=== PATIENT | male | born 1960 | race Caucasian/White ===

== ENCOUNTER 2021-02-01 08:19 | Inpatient (IN) ==
--- OUTSIDE RECORDS SUMMARY | 2021-02-01 08:22 | External Medical Summary | Continuity of Care Document ---
:1960 Author Name Hernán Ha Address Unavailable Unavailable , Care Team Providers Name Role Phone NonMNPG M.DZully Unavailable [email or web address] Problems Active medical history not documented Allergies and Adverse Reactions Allergy history not documented Medications Medications not documented Procedures Procedures not documented Immunizations Immunizations not documented Plan of Treatment Planned Observations Planned Goals not documented Results No Known Results Results not documented
--- OUTSIDE RECORDS SUMMARY | 2021-02-01 08:22 | External Medical Summary | Continuity of Care Document ---
:1960 Author Name Hernán Ha Address Unavailable Unavailable , Care Team Providers Name Role Phone NonMNPG M.DZully Unavailable [email or web address] Active medical history not documented Allergies and Adverse Reactions Allergy history not documented Medications Medications not documented Procedures Procedures not documented Immunizations Immunizations not documented Plan of Treatment Planned Observations Planned Goals not documented Results No Known Results Results not documented
--- NOTE | 2021-02-01 09:11 | Emergency Department Note ---
History of Present Illness General Chief complaint: Back Injury/Pain Stated complaint: left arm numb, pain in back, weakness Time Seen by Provider: 02/01/21 08:34 History of Present Illness Maximum Pain Intensity: 2 60-year-old male who presents to the emergency department with complaint of intermittent left scapular pain, left upper extremity pain with tingling going down the arm to the fingers over the past 3 days. The patient reports that his symptoms have been intermittent now for a few years. It initially developed in June 2019 when he was fishing in [place]. The patient reports that he had extensive work-up by his PCP that did not show any obvious etiologies for his symptoms. The patient reports that the symptoms seem to be triggered with smoking cigars. He has not noticed any significant difference with exertion. The patient has not had any anterior chest pain, shortness of breath, neck pain, nausea, lightheadedness or headaches. Patient denies any significant health issues. He has rescheduled a physical exam for the near future. The patient currently rates his discomfort a 2 out of 10. When the patient does have the pain, he cannot exacerbate the pain with movement of the left shoulder or arm. He reports that the pain resolves with ibuprofen and Tylenol. He denies any personal or family history of other significant cardiopulmonary disease. Patie nt denies hypercholesterolemia or hypertension. He has not noticed any swelling in the legs, and denies any risk factors for blood clots. The patient reports that he spoke with a coworker, who reports that he had a heart attack with similar symptoms. Patient presents to the emergency department today requesting a cardiac work-up. Home Medications Medication Instructions Recorded Confirmed Type acetaminophen [Tylenol] 325 mg PO QID PRN 02/01/21 02/01/21 History ibuprofen [Advil] 600 mg PO Q6H PRN 02/01/21 02/01/21 History nicotine (polacrilex) [Nicorette] 2 mg BUCCAL Q4H PRN 02/01/21 02/01/21 History Allergies Allergy/AdvReac Type Severity Reaction Status Date / Time Penicillins Allergy Intermediate UNSURE Verified 02/01/21 09:10 Past Med/Surg History Medical History Tobacco use disorder Surgical History No pertinent past surgical history Family History Other Cancer Social History Smoking Status: Current every day smoker Tobacco Type: Cigars Cigarettes Per Day: 5-6, chews nicorete; Tobacco Cessation Education Requested by Patient: No Hx Alcohol Use: No Hx Substance Use: No Preferred Language: Amharic Armored Car Messenger Required: No Beliefs That Will Affect Care: None marital status: Current Living Situation: Spouse current occupational status: employed Other Information That Helps Us Care for You: No Feels Safe at Home: Yes Safety Concerns: Feels Safe At This Time Assistive Devices: Contacts Review of Systems 10 system review was performed and was negative except for pertinent positives and negatives as indicated in history of present illness Physical Exam Vital Signs Vital Signs - 24 hr 02/01/21 08:30 02/01/21 09:18 02/01/21 09:30 Temperature 36.9 C Temperature Source Temporal Artery Scan Pulse Rate 82 72 70 Pulse Rate from SpO2 Sensor 70 69 Respiratory Rate 18 16 22 Blood Pressure 130/85 133/83 119/76 Blood Pressure Mean 100 99 90 Pulse Oximetry 95 96 96 Oxygen Delivery Method Room Air Sepsis Recent Fever Within 48 Hours No Sepsis New/Unexplained Change in Mental Status N/A Sepsis Action Taken by Nursing No Action Required 02/01/21 09:34 02/01/21 10:00 02/01/21 10:30 Temperature Temperature Source Pulse Rate 85 67 76 Pulse Rate from SpO2 Sensor 85 69 77 Respiratory Rate 23 17 13 Blood Pressure 150/93 H 130/88 134/86 Blood Pressure Mean 112 102 102 Pulse Oximetry 92 95 95 Oxygen Delivery Method Sepsis Recent Fever Within 48 Hours Sepsis New/Unexplained Change in Mental Status Sepsis Action Taken by Nursing 02/01/21 10:49 02/01/21 11:00 Temperature Temperature Source Pulse Rate 70 72 Pulse Rate from SpO2 Sensor Respiratory Rate 14 14 Blood Pressure 131/80 138/95 Blood Pressure Mean 97 109 Pulse Oximetry Oxygen Delivery Method Sepsis Recent Fever Within 48 Hours Sepsis New/Unexplained Change in Mental Status Sepsis Action Taken by Nursing CONSTITUTIONAL: Healthy and well nourished. Alert and oriented X 3. Patient does not appear in any acute distress. HEENT: Normocephalic, atraumatic. No scleral icterus or conjunctival inje ction/pallor. NECK: Full active range of motion without discomfort. Negative lateral gaze test. LYMPHATICS: No cervical chain adenopathy. RESPIRATORY: Clear to auscultation bilaterally with no wheezing, crackles, rhonchi or stridor. Deep breathing does not cause any discomfort. CARDIOVASCULAR: Regular rate and rhythm with no murmurs, rubs or gallops. GASTROINTESTINAL: Bowel sounds present in all quadrants. Soft and nontender to palpation. MUSCULOSKELETAL: Full range of motion of all joints without discomfort. Patient has no tenderness to palpation of the intrascapular region, thoracic spine or paraspinous muscles. No scapular winging. Range of motion of the right shoulder does not cause discomfort. INTEGUMENTARY: No rash or other significant dermatologic conditions noted. HEMATOLOGIC: No ecchymosis or petechiae. PSYCHIATRIC: Positive affect. NEUROLOGIC: No focal neurologic deficits noted. Left deltoid, hand and fingers are sensory intact. Course Course Patient history and physical exam were performed. Nurses notes were reviewed. Vital signs were reviewed and was initially normal in triage. IV access was established, and labs were drawn. The patient refused any analgesics on initial exam, rating his pain a 2 out of 10. An ECG was performed, suggesting the possibility of Q waves in leads III and aVF, otherwise no ST elevations or other conduction abnormalities appreciated. The patient was placed on child monitor while in the emergency department. A portable chest x-ray was performed and was normal. Review of labs shows an elevated troponin of 0.974, otherwise remaining labs, including CBC, CMP, coagulation studies, D-dimer and lipase were normal. COVID-19 testing was ordered and was negative. Findings were discussed with the patient, as well as Dr. Gibbs, ED attending ph ysician. I initially discussed the case with Dr. Miguel, product development engineer wafer production lead worker, as we were unable to contact Bharath Mcwilliams product development engineer on- call. Dr. Miguel recommended discussing the case further with on-call cardiology art consultant, Dr. Issa. Findings were discussed with Dr. Issa, who recommended admission with IV heparin and serial cardiac isoenzymes and ECGs. If his troponin continues to rise, the patient will be taken to the cardiac cardiovascular surgeon. He also requested a bedside echocardiogram, which was ordered by me. I also placed the order for IV heparin, as well as aspirin 324 mg chew. The patient denied any further worsening of pain while in the emergency depart ment. The case was further discussed with the patient, who was in agreement with admission. I also discussed with the [facility]. Please see their dictation for further treatment and final disposition. Administered Medications Heparin Sodium/Dextrose (Heparin Sodium/Dextrose) 25,000 units in 500 mls @ 29 mls/hr IV .[id number] [facility]; Protocol Stop: 03/03/21 10:59 Last Admin: 02/01/21 11:21 Dose: 1,450 units/hr, 29 mls/hr Documented by: [id number] Cosigned by: [id number] Sodium Chloride (Nss 1000ml) 1,000 mls @ 50 mls/hr IV .Q20H [facility] Stop: 03/03/21 14:44 Last Admin: 02/01/21 15:32 Dose: 50 mls/hr Documented by: [id number] Discontinued Medications Aspirin (Aspirin 81 Mg Chew) 324 mg PO NOW STA Stop: 02/01/21 11:08 Last Admin: 02/01/21 11:21 Dose: 324 mg Documented by: [id number] Heparin Sodium (Porcine) (Heparin Sod (Porcine) 1000 Unit/Ml 10 Ml Vial) Confirm Administered Dose 10,000 units .ROUTE .STK-MED ONE Stop: 02/01/21 11:11 Last Admin: 02/01/21 11:21 Dose: 5,000 units Documented by: [id number] Cosigned by: [id number] Heparin Sodium/Dextrose (Heparin Iv Standard With Bolus) 1 ea IV NOW STA; Protocol Stop: 02/01/21 10:47 Last Admin: 02/01/21 11:30 Dose: Not Given Documented by: [id number] Metoprolol Tartrate (Metoprolol Tartrate 25 Mg Tab) 25 mg PO NOW ONE Stop: 02/01/21 14:42 Last Admin: 02/01/21 15:24 Dose: 25 mg Documented by: [id number] Critical Care Time Critical Care Time: Yes Total Critical Care Time: 35 I have personally spent proximately 35 minutes of critical care time in the direct management of this patient. This includes bedside care, interpretation of diagnostic studies, and testing, discussion with consultants, patient, and family members, and other required patient management activities. This 35 minutes is in excess of all separately billable procedures. The patient was administered IV heparin for non-STEMI. Medical Decision Making Medical Records Attestation: I reviewed the patient's medical records. Home Medications Current Medication List: was personally reviewed by me Laboratory Data Attestation: I reviewed the patient's lab results. Result diagrams: 02/01/21 09:20 02/01/21 09:20 Lab Results 02/01/21 02/01/21 02/01/21 Range/Units 09:20 09:20 09:20 WBC 9.20 (4.8-10.8) K/uL RBC 5.27 (4.7-6.1) M/uL Hgb 16.8 (14.0-18.0) g/dL Hct 47.7 (42-52) % MCV 90.5 (80-100) fL MCH 31.9 (25-34) pg MCHC 35.2 (32-36) g/dL RDW Std Deviation 41.8 (36.4-46.3) fL RDW Coeff of Archana 12.5 (11.5-14.5) % Plt Count 257 (130-400) K/uL MPV 9.2 (7.4-10.4) fL Immature Gran % (Auto) 0.7 % Neut % (Auto) 69.5 % Lymph % (Auto) 19.0 % [place] % (Auto) 9.3 % Eos % (Auto) 1.3 % Baso % (Auto) 0.2 % Neut # (Auto) 6.39 (1.4-6.5) K/uL Lymph # (Auto) 1.75 (1.2-3.4) K/uL [place] # (Auto) 0.86 H (0.11-0.59) K/uL Eos # (Auto) 0.12 (0-0.5) K/uL Baso # (Auto) 0.02 (0-0.2) K/uL Immature Gran # (Auto) 0.06 H (0.00-0.02) K/uL PT (9.0-12.0) Seconds INR (0.9-1.1) D-Dimer 250 (0-500) ug/L FEU Sodium 137 (136-145) mmol/L Potassium 4.2 (3.5-5.1) mmol/L Chloride 105 (98-107) mmol/L Carbon Dioxide 27 (21-32) mmol/L Anion Gap 5.0 (3-11) BUN 21 H (7-18) mg/dl Creatinine 1.11 (0.6-1.4) mg/dl Est Cr Clr Drug Dosing 81.8 ml/min Est GFR ( Amer) 83.2 Est GFR (Non-Af Amer) 71.8 BUN/Creatinine Ratio 19.1 (10-20) Glucose 111 H (70-99) mg/dl Calcium 9.9 (8.5-10.1) mg/dl Total Bilirubin 0.5 (0.2-1) mg/dl AST 22 (15-37) U/L ALT 26 (12-78) U/L Alkaline Phosphatase 70 (45-117) U/L Troponin I 0.974 H* (0-0.045) ng/ml Total Protein 7.9 (6.4-8.2) gm/dl Albumin 4.1 (3.4-5.0) gm/dl Globulin 3.8 (2.5-4.0) gm/dl Albumin/Globulin Ratio 1.1 (0.9-2) Lipase 81 (73-393) U/L COVID-19 Eval Order SARS-CoV-2, RNA, NAAT (NEGATIVE) 02/01/21 02/01/21 02/01/21 Range/Units 09:20 10:40 10:40 WBC (4.8-10.8) K/uL RBC (4.7-6.1) M/uL Hgb (14.0-18.0) g/dL Hct (42-52) % MCV (80-100) fL MCH (25-34) pg MCHC (32-36) g/dL RDW Std Deviation (36.4-46.3) fL RDW Coeff of Archana (11.5-14.5) % Plt Count (130-400) K/uL MPV (7.4-10.4) fL Immature Gran % (Auto) % Neut % (Auto) % Lymph % (Auto) % [place] % (Auto) % Eos % (Auto) % Baso % (Auto) % Neut # (Auto) (1.4-6.5) K/uL Lymph # (Auto) (1.2-3.4) K/uL [place] # (Auto) (0.11-0.59) K/uL Eos # (Auto) (0-0.5) K/uL Baso # (Auto) (0-0.2) K/uL Immature Gran # (Auto) (0.00-0.02) K/uL PT 9.6 (9.0-12.0) Seconds INR 0.9 (0.9-1.1) D-Dimer (0-500) ug/L FEU Sodium (136-145) mmol/L Potassium (3.5-5.1) mmol/L Chloride (98-107) mmol/L Carbon Dioxide (21-32) mmol/L Anion Gap (3-11) BUN (7-18) mg/dl Creatinine (0.6-1.4) mg/dl Est Cr Clr Drug Dosing ml/min Est GFR ( Amer) Est GFR (Non-Af Amer) BUN/Creatinine Ratio (10-20) Glucose (70-99) mg/dl Calcium (8.5-10.1) mg/dl Total Bilirubin (0.2-1) mg/dl AST (15-37) U/L ALT (12-78) U/L Alkaline Phosphatase (45-117) U/L Troponin I (0-0.045) ng/ml Total Protein (6.4-8.2) gm/dl Albumin (3.4-5.0) gm/dl Globulin (2.5-4.0) gm/dl Albumin/Globulin Ratio (0.9-2) Lipase (73-393) U/L COVID-19 Eval Order Covid19 [facility]Now [facility] SARS-CoV-2, RNA, NAAT NEGATIVE (NEGATIVE) Imaging Data Attestation: I personally reviewed and interpreted this imaging study as follows: My Impression: My interpretation of a portable chest x-ray does not show any consolidations, pneumothorax or cardiac prominence. Radiologist report was also reviewed. Radiologist's Impression: XR chest 1V portable CLINICAL HISTORY: Atypical chest pain COMPARISON STUDY: No previous studies for comparison. FINDINGS: The cardiac and mediastinal contours are normal. There is no evidence of focal pulmonary consolidation. There is no evidence of failure. No pleural effusions are visualized.[ IMPRESSION: No active disease in the chest. ECG Data Attestation: I personally reviewed and interpreted this ECG as follows: Indication: + chest pain Rate (beats per minute): 77 Rhythm: + normal sinus ECG Intervals/blocks: + Normal [place] and + Normal QT-c ECG ST segments: + Normal ST segments ECG Findings: + Q waves (III and aVF) Comparison ECG Date: no prior available Prescription Drug Monitoring [place] Drug Monitoring Program reviewed and no issues identified Blood Pressure Blood Pressure Findings: Normal blood pressure MDM Narrative Cardiac monitoring: An order was placed for continuous cardiac monitoring. The monitor shows a rate of 77 bpm with a normal sinus rhythm. environmental monitoring specialist history was reviewed throughout the evaluation, and no dysrhythmias were noted. Patient presents to the emergency department with complaint of an atypical presentation with left scapula pain and left upper extremity discomfort/numbness. The patient denied any anterior chest pain with his current symptoms. His pain initially developed less than 2 years ago. The p atient does have an elevated troponin today that is consistent with non-STEMI. He does have some Q waves in inferior leads, likely from initial cardiac injury 2 years ago. Impression & Plan NSTEMI (non-ST elevated myocardial infarction) Discharge Plan Visit Data Chief Complaint: Back Injury/Pain Stated Complaint: left arm numb, pain in back, weakness ED Provider: Fabian Gibbs ED Midlevel Provider: Ramón Saez Discharge Problem: NSTEMI (non-ST elevated myocardial infarction) Patient Disposition: Admitted As Inpatient Discharge Instructions Interventions: ED Discharge Assessment Last Done: 02/01/21 12:25
[2021-02-01 09:32] LABS: Basophils # (auto) 0.02 K/uL (0-0.2); Basophils % (auto) 0.2 %; Eosinophils # (auto) 0.12 K/uL (0-0.5); Eosinophils % (auto) 1.3 %; Hematocrit (blood only) 47.7 % (42-52); Hemoglobin 16.8 g/dL (14.0-18.0); Immature Granulocytes # (auto) 0.06 K/uL (0.00-0.02); Immature Granulocytes % (auto) 0.7 %; Lymphocytes # (auto) 1.75 K/uL (1.2-3.4); Mean Corpuscular Hemoglobin 31.9 pg (25-34); Mean Corpuscular Hgb Conc 35.2 g/dL (32-36); Mean Corpuscular Volume 90.5 fL (80-100); Mean Platelet Volume 9.2 fL (7.4-10.4); Monocytes # (auto) 0.86 K/uL (0.11-0.59); Monocytes % (auto) 9.3 %; Neutrophils # (auto) 6.39 K/uL (1.4-6.5); Neutrophils % (auto) 69.5 %; Platelet Count 257 K/uL (130-400); RDW Coefficient of Variation 12.5 % (11.5-14.5); RDW Standard Deviation 41.8 fL (36.4-46.3); Red Blood Count 5.27 M/uL (4.7-6.1)
--- NOTE | 2021-02-01 09:35 | XRay Report ---
XR chest 1V portable CLINICAL HISTORY: Atypical chest pain COMPARISON STUDY: No previous studies for comparison. FINDINGS: The cardiac and mediastinal contours are normal. There is no evidence of focal pulmonary co nsolidation. There is no evidence of failure. No pleural effusions are visualized.[ IMPRESSION: No active disease in the chest. ACT 112: Negative or not required by law. Electronically signed by: Piotr Andres M.D. 02/01/2021 9:34 AM
[2021-02-01 09:42] LABS: D Dimer 250 ug/L FEU (0-500)
[2021-02-01 09:48] LABS: Albumin Level 4.1 gm/dl (3.4-5.0); BUN Creatinine Ratio 19.1 (10-20); Calcium 9.9 mg/dl (8.5-10.1); Creatinine Clr Calc Pharmacy 81.8 ml/min; Est GFR (African American) 83.2; Est GFR (Non-African American) 71.8; Potassium 4.2 mmol/L (3.5-5.1)
[2021-02-01 09:54] LABS: Albumin Globulin Ratio 1.1 (0.9-2); Bilirubin,Total 0.5 mg/dl (0.2-1); Globulin 3.8 gm/dl (2.5-4.0); Total Protein 7.9 gm/dl (6.4-8.2); Troponin I 0.974 ng/ml (0-0.045)
[2021-02-01] MEDS ORDERED: Heparin IV Adult Wt-Based Standard WITH Bolus Protocol IV STA (10:46)
--- NOTE | 2021-02-01 10:56 | History & Physical Report ---
Date of Service February 01, 2021 Assessment & Plan (1) NSTEMI (non-ST elevated myocardial infarction): This is a 60yo M with a PMH of tobacco use who presents with intermittent shoulder and left arm pain over the past few days and found to have NSTEMI. L subscapular pain with radiation to left arm, intermittent, made worse after smoking cigar Denies personal or family history of CAD. No PMH of diabetes, HTN or HLD Initial troponin elevated 0.974 D-dimer within normal limits ECG without acute ischemic changes CXR without acute cardiopulmonary abnormality ED provider discussed with Dr. Issa in blood bank laboratory technician, who recommended initiating IV heparin for NSTEMI Echo with normal systolic function, no wall motion abnormality or significant valvular pathology Trend troponin, monitor on telemetry, routine cardiology consult, check a1c and fasting lipid panel in AM, repeat ECG in AM (2) Tobacco use disorder: Cessation recommended DVT Ppx: IV heparin Code status: FULL PCP: Yara Dispo: Admitted to PCU. Plan to return home once medically stable Patient seen in collaboration with Dr. Turner. Please see addendum. History of Present Illness Chief Complaint: shoulder pain Primary Care Provider: Philip Livingston MD This is a 60yo M with a PMH of tobacco use who presents with intermittent shoulder and left arm pain over the past few days. Has history of pain similar to this that he describes as an ache underneath the back of his left shoulder with radiating pain down left arm into fingertips with associated feelings of weakness. Occurred first in June 2019 when he was on a fishing trip in [place]. Underwent echocardiogram at that time which was normal. Was encouraged to stop smoking cigars by PCP. Was successful with cessation for a bit but is smoking again and pain resolved, but is now back to 6 small cigars daily. Over the past 3 days, endorses intermittent episodes of shoulder discomfort that occur after patient smokes a cigar. Pain improves with Tylenol, Advil and rest. Episodes usually last no longer than an hour. Denies any associated diaphoresis, chest pain, shortness of breath, nausea or vomiting. No known family history or personal history of heart disease. Has been working out recently without eliciting shoulder pain. Denies any personal history of diabetes, hypertension. Told he had borderline hyperlipidemia in the past but has been trying to control with diet and exercise. Denies any fever, chills, lightheadedness, headache, dysuria, diarrhea or constipation. In ED, patient no longer experiencing pain in shoulder. Is resting comfortably. Vital signs stable. D-dimer within normal limits. Initial troponin elevated 0.974. Chest x-ray without any active disease in chest. EKG without acute ECG changes. ED provider discussed with Dr. Issa in blood bank laboratory technician, who recommended initiating IV heparin for NSTEMI and getting echo. Allergies Allergy/AdvReac Type Severity Reaction Status Date / Time Penicillins Allergy Intermediate UNSURE Verified 02/01/21 09:10 Home Medications Medication Instructions Recorded Confirmed Type acetaminophen [Tylenol] 325 mg PO QID PRN 02/01/21 02/01/21 History ibuprofen [Advil] 600 mg PO Q6H PRN 02/01/21 02/01/21 History nicotine (polacrilex) [Nicorette] 2 mg BUCCAL Q4H PRN 02/01/21 02/01/21 History Past Med/Surg History Medical History (Updated 02/01/21 @ 13:47 by Darcy Esquivel PA-C) Tobacco use disorder Surgical History No pertinent past surgical history Family History (Updated 02/01/21 @ 12:50 by Darcy Esquivel PA-C) Other Cancer Social History (Updated 02/01/21 @ 12:51 by Darcy Esquivel PA-C) Smoking Status: Current every day smoker Tobacco Type: Cigars Cigarettes Per Day: 5-6, chews nicorete; Tobacco Cessation Education Requested by Patient: No Hx Alcohol Use: No Hx Substance Use: No Preferred Language: Emirati [employer] Billing Analyst Required: No Beliefs That Will Affect Care: None marital status: Current Living Situation: Spouse current occupational status: employed Other Information That Helps Us Care for You: No Feels Safe at Home: Yes Safety Concerns: Feels Safe At This Time Assistive Devices: Contacts Review of Systems Review of Systems: At least ten systems reviewed and negative except as noted in the HPI. Physical Exam Physical Exam: General Appearance: WD/WN, vitals as above, NAD, sitting up in bed, pleasant, conversing easily Head: normocephalic, atraumatic Eyes: normal inspection, PERRL, conjunctivae normal, anicteric sclerae ENT: external ear and nose normal, oropharynx normal Neck: normal visual inspection, trachea midline, no thyromegaly Respiratory: normal respiratory effort, lungs clear to auscultation, no wheeze, rales, rhonchi. No accessory muscle use Cardiovascular: regular rate, rhythm, no murmur, normal peripheral pulses, no BLE edema. Vessels: no JVD Chest: normal inspection of chest Abdomen/GI: normal bowel sounds, soft, nontender, no hepatosplenomegaly Extremities/Musculoskeletal: no cyanosis or clubbing, extremities motor strengt h 5/5. No shoulder or L arm pain to palpation Neurologic: PERRL, EOMI, accommodation nl, no face palsy, no dysarthria, CN's II-XI intact bilaterally and moves all extremities Psychiatric: A+Ox3, euthymic affect Skin: no rashes, normal color, warm/dry Results & Data Results & Data ([facility] [place]) Vital Signs (Past 12 Hours) Vital Signs Temp Pulse Resp BP Pulse Ox 02/01/21 10:30 76 13 134/86 95 02/01/21 10:00 67 17 130/88 95 02/01/21 09:34 85 23 150/93 H 92 02/01/21 09:30 70 22 119/76 96 02/01/21 09:18 72 16 133/83 96 02/01/21 08:30 36.9 C 82 18 130/85 95 Laboratory Results Short CBC 02/01/21 Range/Units 09:20 WBC 9.20 (4.8-10.8) K/uL Hgb 16.8 (14.0-18.0) g/dL Hct 47.7 (42-52) % Plt Count 257 (130-400) K/uL BMP 02/01/21 09:20 Sodium 137 Potassium 4.2 Chloride 105 Carbon Dioxide 27 BUN 21 H Creatinine 1.11 Glucose 111 H Calcium 9.9 Cardiac Enzymes 02/01/21 Range/Units 09:20 Troponin I 0.974 H* (0-0.045) ng/ml Liver Function 02/01/21 Range/Units 09:20 Total Bilirubin 0.5 (0.2-1) mg/dl AST 22 (15-37) U/L ALT 26 (12-78) U/L Alkaline Phosphatase 70 (45-117) U/L Albumin 4.1 (3.4-5.0) gm/dl Diagnostic Findings CXR: IMPRESSION: No active disease in the chest. Supervising Physician Co-Signing Physician Notes Patient is a 60-year-old male with history of tobacco use and no other significant medical history presents with history of ongoing intermittent left shoulder pain radiating down to her fingers. Denies any aggravating or relieving factors. Denies any history of hypertension, diabetes, family history of heart disease, alcohol use, dyslipidemia. Also denies any history of chest pain, dyspnea, dizziness, diaphoresis, nausea, vomiting. His troponin was elevated at 0.9 while in ED. EKG showed T wave inversions in inferior leads. Echocardiogram showed normal wall motion and no significant valvular heart disease. He was started on IV heparin while in ED. On exam patient is moderately built and nourished, no apparent distress, normocephalic atraumatic, lungs are clear to auscultation, normal breath sounds, S1-S2, no murmur, no pedal edema, abdomen soft, nontender, normal bowel sounds, alert, awake, oriented, grossly nonfocal neurological deficits. Patient is admitted for management of Possible NSTEMI. Agree with continuing IV heparin, aspirin. Also was started on metoprolol by cardiology. Appreciate cardiology input. Will obtain lipid panel, HbA1c and trend cardiac enzymes, repeat EKG in the morning. We will keep him n.p.o. after midnight for possible cardiac cath in the morning. Counseled to quit smoking. Cardiology consulted. I personally reviewed the record. Patient is interviewed and examined at bedside. Patient's care is coordinated with Darcy Esquivel PA-C. Please refer to the documentation above for details of patient's presentation and for discussion of other issues.
[2021-02-01] MEDS ORDERED: HEPARIN SODIUM/DEXTROSE 25,000 UNITS/500 ML BAG IV SCH (11:00)
[2021-02-01] MEDS ORDERED: ASPIRIN 81 MG CHEW PO STA (11:07)
[2021-02-01] MEDS ORDERED: HEPARIN SOD (PORCINE) 1000 UNIT/ML ONE (11:10)
[2021-02-01 11:30] LABS: INR 0.9 (0.9-1.1); Prothrombin Time 9.6 Seconds (9.0-12.0)
--- NOTE | 2021-02-01 12:40 | XCELERA ---
[id number]
[2021-02-01] MEDS ORDERED: METOPROLOL TARTRATE 25 MG TAB PO ONE (14:41)
--- NOTE | 2021-02-01 15:21 | Cardiology Consultation ---
Date of Consultation February 01, 2021 Assessment & Plan (1) NSTEMI (non-ST elevated myocardial infarction): Patient is a 60-year-old male history of borderline hypertension, mild dyslipidemia, chronic tobacco use who presents with concerning constellation of pain described as left shoulder and scapular discomfort radiating to his arm intermittently. No acute injury pattern by EKG although troponin on initial assessment elevated consistent with non-ST segment elevation myocardial infarction until proven otherwise Patient currently without symptoms or complaints He has received aspirin and IV heparin We will initiate beta-marian, statin Discussed findings in detail with the patient he notes concerns regarding symptoms dating back to initial event approximately 2 years ago. In light of findings history and elevated troponin will refer for diagnostic cardiac catheterization as definitive study. Procedure and risks explained in detail to the patient tentatively scheduled for first case tomorrow morning (2) Tobacco use disorder: History of Present Illness Reason for Consultation: Left shoulder and back pain, elevated troponin Requesting Physician: Dr. Turner Attending Physician: Miguel Turner MD History of Present Illness Patient is a 60-year-old male without prior history of cardiac disease who presents this admission noting 3-day history of intermittent left shoulder and scapular pain with radiation to left arm. Symptoms exacerbated by tobacco use. Notes no sustained episodes will episode today at rest concerning. He presented emergency room where initial EKGs did not reflect acute injury pattern though troponin is elevated. He is currently comfortable without complaint. Notes similar episode of complaints approximately 2 years ago while fishing in [place] [employer]. Denies history rheumatic fever scarlet fever heart murmur. Notes no history of TIA or stroke. Notes no history of renal hepatic disease. Has had borderline hypertension in the past. Smokes approximately 7 small cigars per day. Does note an increased amount of stress recently home and job No recent fevers chills or unexplained infections. No bleeding difficulties. No melena medication dysuria hematuria. Appetite and weight have been stable. No sleep disruption. Allergies Allergy/AdvReac Type Severity Reaction Status Date / Time Penicillins Allergy Intermediate UNSURE Verified 02/01/21 09:10 Home Medications Medication Instructions Recorded Confirmed Type acetaminophen [Tylenol] 325 mg PO QID PRN 02/01/21 02/01/21 History ibuprofen [Advil] 600 mg PO Q6H PRN 02/01/21 02/01/21 History nicotine (polacrilex) [Nicorette] 2 mg BUCCAL Q4H PRN 02/01/21 02/01/21 History Patient History Medical History Tobacco use disorder Surgical History No pertinent past surgical history Family History Other Cancer Social History Smoking Status: Current every day smoker Tobacco Type: Cigars Cigarettes Per Day: 5-6, chews nicorete; Tobacco Cessation Education Requested by Patient: No Hx Alcohol Use: No Hx Substance Use: No Preferred Language: Irish 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 Required: No Beliefs That Will Affect Care: None marital status: Current Living Situation: Spouse current occupational status: employed Other Information That Helps Us Care for You: No Feels Safe at Home: Yes Safety Concerns: Feels Safe At This Time Assistive Devices: Contacts Review of Systems Review of Systems: All systems reviewed & are unremarkable except as noted in HPI & below Physical Exam Constitutional: WD/WN, vitals as above Eyes: PERRL, conjunctivae normal, anicteric sclerae Mild proptosis ENMT: external ear and nose normal, oropharynx normal Neck: trachea midline, no thyromegaly Respiratory: normal respiratory effort, lungs clear to auscultation Cardiovascular: Rate/Rhythm: regular rate and regular rhythm Heart Sounds: normal S1 and normal S2; no gallop and no murmur Palpation: normal PMI Vessels: normal carotid upstroke and radial pulses present; no JVD and no carotid bruit Extremities: no edema Gastrointestinal (Abdomen): normal bowel sounds, soft, nontender, no hepatosplenomegaly Musculoskeletal: no cyanosis or clubbing, extremities motor strength 5/5 Skin: no rashes, warm and dry Neurologic: PERRL, EOMI, accommodation nl, no face palsy, no dysarthria Psychiatric: A+Ox3, euthymic affect Results & Data ([facility]) Vital Signs (Past 12 Hours) Vital Signs Temp Pulse Resp BP BP Pulse Ox 02/01/21 12:44 36.6 C 18 145/78 H 98 02/01/21 12:00 68 16 138/90 02/01/21 11:30 68 19 145/98 H 02/01/21 11:00 72 14 138/95 02/01/21 10:49 70 14 131/80 02/01/21 10:30 76 13 134/86 95 02/01/21 10:00 67 17 130/88 95 02/01/21 09:34 85 23 150/93 H 92 02/01/21 09:30 70 22 119/76 96 02/01/21 09:18 72 16 133/83 96 02/01/21 08:30 36.9 C 82 18 130/85 95 Laboratory Results Laboratory Results - last 24 hr 02/01/21 02/01/21 02/01/21 09:20 09:20 09:20 WBC 9.20 RBC 5.27 Hgb 16.8 Hct 47.7 MCV 90.5 MCH 31.9 MCHC 35.2 RDW Std Deviation 41.8 RDW Coeff of Archana 12.5 Plt Count 257 MPV 9.2 Immature Gran % (Auto) 0.7 Neut % (Auto) 69.5 Lymph % (Auto) 19.0 [place] % (Auto) 9.3 Eos % (Auto) 1.3 Baso % (Auto) 0.2 Neut # (Auto) 6.39 Lymph # (Auto) 1.75 [place] # (Auto) 0.86 H Eos # (Auto) 0.12 Baso # (Auto) 0.02 Immature Gran # (Auto) 0.06 H PT INR D-Dimer 250 Sodium 137 Potassium 4.2 Chloride 105 Carbon Dioxide 27 Anion Gap 5.0 BUN 21 H Creatinine 1.11 Est Cr Clr Drug Dosing 81.8 Est GFR ( Amer) 83.2 Est GFR (Non-Af Amer) 71.8 BUN/Creatinine Ratio 19.1 Glucose 111 H Calcium 9.9 Total Bilirubin 0.5 AST 22 ALT 26 Alkaline Phosphatase 70 Troponin I 0.974 H* Total Protein 7.9 Albumin 4.1 Globulin 3.8 Albumin/Globulin Ratio 1.1 Lipase 81 COVID-19 Eval Order SARS-CoV-2, RNA, NAAT 02/01/21 02/01/21 02/01/21 09:20 10:40 10:40 WBC RBC Hgb Hct MCV MCH MCHC RDW Std Deviation RDW Coeff of Archana Plt Count MPV Immature Gran % (Auto) Neut % (Auto) Lymph % (Auto) [place] % (Auto) Eos % (Auto) Baso % (Auto) Neut # (Auto) Lymph # (Auto) [place] # (Auto) Eos # (Auto) Baso # (Auto) Immature Gran # (Auto) PT 9.6 INR 0.9 D-Dimer Sodium Potassium Chloride Carbon Dioxide Anion Gap BUN Creatinine Est Cr Clr Drug Dosing Est GFR ( Amer) Est GFR (Non-Af Amer) BUN/Creatinine Ratio Glucose Calcium Total Bilirubin AST ALT Alkaline Phosphatase Troponin I Total Protein Albumin Globulin Albumin/Globulin Ratio Lipase COVID-19 [facility] SARS-CoV-2, RNA, NAAT NEGATIVE Diagnostic Findings Chest x-ray no active disease Echocardiogram without valvular disease and preserved LV systolic function is present
[2021-02-01] MEDS: SODIUM CHLORIDE 0.9% 1000ML 1,000 ML IV SCH (15:32)
--- NOTE | 2021-02-01 16:40 | Electrocardiogram Report ---
Test Reason : Blood Pressure : / mmHG Vent. Rate : 077 BPM Atrial Rate : 077 BPM P-R Int : 196 ms QRS Dur : 080 ms QT Int : 370 ms P-R-T Axes : 055 -24 012 degrees QTc Int : 418 ms Normal sinus rhythm Inferior infarct , age undetermined Abnormal ECG No previous ECGs available Confirmed by Romario Miguel ([id number]) on 02/01/2021 4:39:37 PM Referred By: REFERRED SELF Confirmed By:Romario Miguel
[2021-02-01 17:37] LABS: Partial Thromboplastin Ratio 2.4
[2021-02-01] MEDS: METOPROLOL TARTRATE 25 MG TAB PO SCH (19:52)
[2021-02-01] MEDS ORDERED: NITROGLYCERIN SL 0.4 MG/TAB TAB ONE ×2 (22:27→22:28)
[2021-02-01] MEDS ORDERED: MoRPHine SULFATE 4 MG/ML 1 ML CARP\\VIAL IV PRN (22:29)
[2021-02-01] MEDS ORDERED: NITROGLYCERIN SL 0.4 MG/TAB TAB SL STA (22:29)
[2021-02-01] MEDS ORDERED: NITROGLYCERIN SL 0.4 MG/TAB TAB SL PRN (22:29)
[2021-02-01] MEDS ORDERED: traMADol HCL 50 MG TABLET PO PRN (22:29)
--- NOTE | 2021-02-01 22:52 | Communication Note ---
Date of Service: February 01, 2021 Notified by RN of abnormal EKG results around 10:30 PM. 5 minutes earlier as per RN account, patient complained of worsening left upper back discomfort going to the arm. Patient denies chest pain. EKG showed acute WA as per RN. Discomfort relieved by nitroglycerin. EKG as per my interpretation :Rate 65, NSR, normal axis, ST elevation inferior leads, ST depression lateral leads AP STEMI Patient admitted in AM for NSTEMI. Heart alert called after discussed case with Dr. Issa (machine etcher audiovisual production specialist.)
[2021-02-01] MEDS ORDERED: HEPARIN (PORCINE) 1000 UNIT/ML 10 ML (CATH LAB USE ONLY) ONE (23:15)
[2021-02-01] MEDS ORDERED: niCARdipine HCL INJ 2.5 MG/ML 10 ML AMP ONE (23:15)
[2021-02-01] MEDS ORDERED: NITROGLYCERIN/D5W 100MCG/ML 20ML SYR ONE (23:16)
[2021-02-01] MEDS ORDERED: fentaNYL citrate 100 MCG/2 ML VIAL ONE (23:16)
[2021-02-01] MEDS ORDERED: MIDAZOLAM HCL 1 MG/ML 2ML VIAL ONE (23:16)
[2021-02-02] MEDS ORDERED: ATROPINE SULFATE 0.1 MG/ML 10ML SYR IV ONE (00:08)
[2021-02-02] MEDS ORDERED: fentaNYL citrate 100 MCG/2 ML VIAL ONE (00:13)
[2021-02-02] MEDS ORDERED: MIDAZOLAM HCL 1 MG/ML 2ML VIAL ONE (00:14)
[2021-02-02] MEDS ORDERED: EPTIFIBATIDE 2 MG/ML 10 ML VIAL (CATH LAB USE ONLY) IV ONE (00:29)
[2021-02-02] MEDS ORDERED: EPTIFIBATIDE 0.75 MG/ML 75MG VIAL (CATH LAB USE ONLY) ONE (00:31)
[2021-02-02] MEDS ORDERED: TICAGRELOR 90 MG TAB PO ONE (01:07)
--- NOTE | 2021-02-02 01:23 | Pre Anesthesia Assessment ---
Date of Service February 02, 2021 Pre Sedation Assessment Vital Signs Temp Pulse Pulse Resp BP BP Pulse Ox 02/01/21 22:54 36.7 C 60 20 127/76 96 02/01/21 22:35 64 126/82 02/01/21 22:30 36.8 C 59 L 18 129/90 95 02/01/21 20:06 36.6 C 62 18 122/77 95 02/01/21 16:00 36.8 C 66 90 18 116/72 99 02/01/21 15:35 36.6 C 72 18 113/75 96 02/01/21 15:28 37.2 C 79 17 109/65 99 02/01/21 12:44 36.6 C 18 145/78 H 98 02/01/21 12:00 68 16 138/90 02/01/21 11:30 68 19 145/98 H 02/01/21 11:00 72 14 138/95 02/01/21 10:49 70 14 131/80 02/01/21 10:30 76 13 134/86 95 02/01/21 10:00 67 17 130/88 95 02/01/21 09:34 85 23 150/93 H 92 02/01/21 09:30 70 22 119/76 96 02/01/21 09:18 72 16 133/83 96 02/01/21 08:30 36.9 C 82 18 130/85 95 Pre-Sedation Airway Assessment Smoking Status: Current every day smoker Notes The planned sedation has been discussed with the patient. Informed Consent was obtained. I have identified the patient, determined the appropriateness of sedation and have assessed the patient immediately prior to the procedure. All medicine(s) and interventions are by my order. Supervising Physician Co-Signing Physician Notes Patient is a 60-year-old male with history of tobacco use and no other significant medical history presents with history of ongoing intermittent left shoulder pain radiating down to her fingers. Denies any aggravating or relieving factors. Denies any history of hypertension, diabetes, family history of heart disease, alcohol use, dyslipidemia. Also denies any history of chest pain, dyspnea, dizziness, diaphoresis, nausea, vomiting. His troponin was elevated at 0.9 while in ED. EKG showed T wave inversions in inferior leads. Echocardiogram showed normal wall motion and no significant valvular heart disease. He was started on IV heparin while in ED. On exam patient is moderately built and nourished, no apparent distress, normocephalic atraumatic, lungs are clear to auscultation, normal breath sounds, S1-S2, no murmur, no pedal edema, abdomen soft, nontender, normal bowel sounds, alert, awake, oriented, grossly nonfocal neurological deficits. Patient is admitted for [facility] of Possible NSTEMI. Agree with continuing IV heparin, aspirin. Also was started on metoprolol by cardiology. Appreciate cardiology input. Will obtain lipid panel, HbA1c and trend cardiac enzymes, repeat EKG in the morning. We will keep him n.p.o. after midnight for possible cardiac cath in the morning. Counseled to quit smoking. Cardiology consulted. I personally reviewed the record. Patient is interviewed and examined at bedside. Patient's care is coordinated with Darcy Esquivel PA-C. Please refer to the documentation above for details of patient's presentation and for discussion of other issues.
--- NOTE | 2021-02-02 01:37 | Cardiac Catheterization ---
Cardiac Cath Procedure Full Procedure Date February 02, 2021 Pre-Procedure Diagnosis Pre-Procedure Diagnosis: STEMI (inferior) AUC Score AUC Score: 08 Post-Procedure Diagnosis Post-Procedure Diagnosis: Severe CAD and Successful PCI Procedure(s) Performed Procedure(s) Performed: Coronary Angiography, Drug Eluting Stent, Ultrasound Guided Vascular Access and Procedure Class 1 Owner Operator Ehsan Issa MD Estimated Blood Loss Estimated Blood Loss: None (30 ml) Medication(s) Medication(s): Aspirin, Atropine, Fentanyl, Heparin, Integrilin, Lidocaine 1%, Nicardipine, Nitroglycerin and Versed Summary of Findings LMT: large. mild disease with distal 30% LAD: large, transapical. p-diffuse mild, m-long eccentric calcified up to 95%, d-mild scattered disease D1 and D2 small to medium and arise in close proximity to one another. D3 is large and without significant disease. LCx large, nondominant. p-diffuse mild, m-diffuse mild, d-long eccentric 95% in AV groove. then terminates in medium to large PLB. OM1- large and branching. ostial to mid vessel diffuse disease of up to 50-70%. OM2 small RCA: large and dominant.p-diffuse disease with up to 95% calcified stenosis. m+d diffuse mild disease. PDA- large and branches distally. scattered mild disease. PLB large and multibranching. 99% stenosis ostial to proximal first branch. Long eccentric 70% stenosis second branch Patient underwent diagnostic cath via the radial approach secondary to initial back and shoulder pain with associated borderline inferior ST elevations and mildly elevated troponin. Pain 2-4 out of 10. On arrival in cathode washer he denied any pain and monitor did not show significant ST elevations. Diagnostic cath performed and given multivessel disease a CT surgery consult was recommended. This was discussed with patient in cathode washer and he was in agreement. However, he then began to have worsening symptoms rate 7-8 in intensity. His monitor showed significant ST elevations and he developed 2:1 AV block. He was given sl NTG, and atropine. HR improved but BP was low. IVF started. He was prepped and draped in a sterile fashion. US guided R femoral artery access and 6F sheath placed. Network Diagnostic Support Specialist RCA angio performed with 6F 3DRC guide cath. The proximal RCA was now occluded. Patient given heparin and BMW universal guidewire was advanced down RCA. Integrilin given as double bolus followed by drip. Lesion predilated with 2.0x8 mm balloon. Next with 2.5 x 12 mm balloon. a 2.5 x 15 mm Meena deployed at 11 tang. A 2.5 x 12 mm meena deployed at 12 tang with distal segment overlapped with proximal segment of first stent. Angiography performed. Equipment removed. Angioseal closure performed. Patient with resolution of symptoms, ST elevations, and 2:1 AV block. PCI RCA: 0% residual stenosis post PCI of proximal RCA VERENICE III flow post PCI No dissection/perforation post PCI Hemodynamics Rest Ao:: 93/65 mm Hg, mean 81 mm Hg Final Ao: 131/79 mm Hg, mean 1o4 mm Hg LV: not performed Recommendations Recommendations: Medical Therapy and/or Counseling (guideline directed medical therapy: ASA, beta marian (as HR and BP allow), +/- ACEi/ARB, and high intensity statin), PCI without planned CABG and Management Recommendatons (staged PCI of remaining disease) Specimens Specimens: None Radiation Exposure (mGy) 3216 Contrast (mls) 185 Procedural Complication(s) diagnostic cath complicated by thrombosis of severe RCA stenosis. Treated with emergent PCI Disposition PCU I attest to the content of the Intraoperative Record and any orders documented therein. Any exceptions are noted below. ACC Data: Solvent Process Extractor Operator Cardiac Status Clinical evaluation leading to the procedure CAD Presenation: STEMI Anginal Classification: CCS IV Heart Failure: No Cardiogenic Shock within 24 Hours: No Cardiac Arrest within 24 Hours: No Imaging Studies Past 6 Months: Yes Stress Studies Past 6 Months: No Standard Exercise Test: No Stress Echocardiogram: No Stress Testing w/SPECT MPI: No Cardiac CTA: No STEMI OR Non-STEMI Symptom Onset Date: 02/01/21 Symptom Onset Time: 00:00 Thrombolytics: No Coronary Anatomy Dominant: Right Left Main (% Stenosis): Distal (30) LAD (% Stenosis): Mid (90-95) D1 (% Stenosis): Normal D2 (% Stenosis): Normal D3 (% Stenosis): Normal Circumflex (% Stenosis): Proximal (mild), Mid (mild) and Distal (95-99%) OM1 (% Stenosis): Proximal (50-70) OM2 (% Stenosis): Normal L PL1 (% Stenosis): Normal RCA (% Stenosis): Proximal (90) R PDA (% Stenosis): Normal R PL1 (% Stenosis): Proximal (99) R PL2 (% Stenosis): Proximal (70) Diagnostic Physicians Name: Ehsan Issa MD Status: Emergency Closure Device Percutaneous Entry Location: both radial and femoral Closure Device: Angio-Seal and Radial Band Recommendations: Medical Therapy and/or Counseling (guideline directed medical therapy: ASA, beta marian (as HR and BP allow), +/- ACEi/ARB, and high intensity statin), PCI without planned CABG and Management Recommendatons (staged PCI of remaining disease) PCI Indication: Immediate PCI for STEMI First Noted: Subsequent EKG Lesion Segment Name: proximal RCA Culprit Artery: Yes Stenosis Prior to Rx (%): 95-100 Chronic Total Occlusion: No IVUS: No FFR: No Pre-Procedure VERENICE Flow: 0 Previously Treated Lesion: No Lesion Complexity: Non-High/Non-C Lesion Length (mm): 15 Thrombus Present: Yes Bifurcation Lesion: No Guidewire Across Lesion: Yes Intraprocedure Events Significant Disection: No Perforation: No
--- NOTE | 2021-02-02 02:46 | Cardiology Consultation ---
Date of Consultation February 02, 2021 Assessment & Plan (1) NSTEMI (non-ST elevated myocardial infarction): DAPT with ASA 81 mg daily, Brilinta 90 mg bid High intensity statin therapy with lipitor 40 mg daily. Target LDL reduction 50%+ from baseline LDL GDMT with ASA, statin, beta marian +/- ACEi/ARB as tolerated consider staged PCI for residual disease. tobacco cessation Present on Admission?: Yes History of Present Illness Reason for Consultation: INTERVENTIONAL CARDIOLOGY CONSULT: re. recurrent CP, NSTEMI with borderline ST elevations Requesting Physician: Vaughn Attending Physician: Miguel Turner MD History of Present Illness 60 yo male who initially presented in the am with c/o L back and shoulder pain. Intermittent and worsening over past several days. He states episodes last about 1 hr. He also admits that about a year and 1/2 ago he had protracted episode lasting hours [place] [place]. He did not seek medical attention at that time. He is a smoker and was concerned about recent acceleration of symptoms. His initial EKG suggested prior inferior infarct with Q waves in inferior leads. His troponin was found to be mildly elevated and he was admitted under the hospitalist service for workup and management. Cardiology consult obtained and plan was for cath on 02/02. He also had an echo which he states was "normal" but the report was not reviewed by me. He was started on heparin gtt and given ASA. Evidently remained symptom free until this evening when he reported mild recurrence of back and shoulder discomfort. An EKG was performed and showed borderline elevation of ST segments in the inferior leads and reciprocal 1-[address] depressions. I was contacted by the hospitalist who requested urgent evaluation for possible STEMI. On my arrival patient states he felt fine but admitted to symptoms rated 2/10. I recommended definitive evaluation by coronary angiography in an urgent manner given symptoms and EKG changes. He agreed and was taken to the landscape and yardwork laborer where diagnostic cath performed via radial artery demonstrated severe multivessel CAD and no acute appearing lesion. He was symptom free on arrival to landscape and yardwork laborer and his ST changes had resolved. After diagnostic cath completed we discussed referral to tertiary center for "heart team evaluation" regarding MV CAD and CT surgery versus staged PCI. However, after I left the room he developed severe symptoms, significant ST elevations, bradycardia with 2:1 AV block, and hypotension. After medical stabilization we proceeded with right coronary angiography (now 100% thrombotic occlusion) then emergently with PCI of the RCA using 2 overlapped CRISTAL to completely cover proximal lesion. His symptoms, EKG changes, and low BP all resolved. He is now returning to room in stable condition. Allergies Allergy/AdvReac Type Severity Reaction Status Date / Time Penicillins Allergy Intermediate UNSURE Verified 02/01/21 09:10 Home Medications Medication Instructions Recorded Confirmed Type acetaminophen [Tylenol] 325 mg PO QID PRN 02/01/21 02/01/21 History ibuprofen [Advil] 600 mg PO Q6H PRN 02/01/21 02/01/21 History nicotine (polacrilex) [Nicorette] 2 mg BUCCAL Q4H PRN 02/01/21 02/01/21 History Patient History Medical History Tobacco use disorder Surgical History No pertinent past surgical history Family History Other Cancer Social History Smoking Status: Current every day smoker Tobacco Type: Cigars Cigarettes Per Day: 5-6, chews nicorete; Tobacco Cessation Education Requested by Patient: No Hx Alcohol Use: No Hx Substance Use: No Preferred Language: Kuwaiti Manager Paper Required: No Beliefs That Will Affect Care: None marital status: Current Living Situation: Spouse current occupational status: employed Other Information That Helps Us Care for You: No Feels Safe at Home: Yes Safety Concerns: Feels Safe At This Time Assistive Devices: Glasses Review of Systems Review of Systems: All systems reviewed & are unremarkable except as noted in HPI & below Physical Exam Constitutional: WD/WN, vitals as above well developed, well nourished, healthy appearing, well groomed and + overweight Eyes: PERRL, conjunctivae normal, anicteric sclerae ENMT: external ear and nose normal, oropharynx normal Neck: trachea midline, no thyromegaly normal visual inspection Thyroid: normal thyroid Respiratory: normal respiratory effort, lungs clear to auscultation Auscultation: lungs clear to auscultation bilaterally Cardiovascular: RRR, no murmur, no edema Extremities: normal capillary refill Gastrointestinal (Abdomen): normal bowel sounds, soft, nontender, no hepatosplenomegaly Musculoskeletal: no cyanosis or clubbing, extremities motor strength 5/5 Neurologic: PERRL, EOMI, accommodation nl, no face palsy, no dysarthria normal touch/pain/proprioception Results & Data ([facility] [place]) Vital Signs (Past 12 Hours) Vital Signs Temp Pulse Pulse Resp BP BP Pulse Ox 02/02/21 02:03 68 18 127/80 97 02/02/21 01:47 72 20 130/81 95 02/02/21 01:28 37 C 73 20 135/83 95 02/01/21 22:54 36.7 C 60 20 127/76 96 02/01/21 22:35 64 126/82 02/01/21 22:30 36.8 C 59 L 18 129/90 95 02/01/21 20:06 36.6 C 62 18 122/77 95 02/01/21 16:00 36.8 C 66 90 18 116/72 99 02/01/21 15:35 36.6 C 72 18 113/75 96 02/01/21 15:28 37.2 C 79 17 109/65 99
[2021-02-02 06:29] LABS: Basophils # (auto) 0.02 K/uL (0-0.2); Basophils % (auto) 0.3 %; Eosinophils # (auto) 0.16 K/uL (0-0.5); Eosinophils % (auto) 2.2 %; Hematocrit (blood only) 45.3 % (42-52); Hemoglobin 15.6 g/dL (14.0-18.0); Immature Granulocytes # (auto) 0.05 K/uL (0.00-0.02); Immature Granulocytes % (auto) 0.7 %; Lymphocytes # (auto) 2.22 K/uL (1.2-3.4); Lymphocytes % (auto) 30.7 %; Mean Corpuscular Hemoglobin 31.6 pg (25-34); Mean Corpuscular Hgb Conc 34.4 g/dL (32-36); Mean Corpuscular Volume 91.7 fL (80-100); Mean Platelet Volume 9.4 fL (7.4-10.4); Monocytes # (auto) 0.75 K/uL (0.11-0.59); Monocytes % (auto) 10.4 %; Neutrophils # (auto) 4.03 K/uL (1.4-6.5); Neutrophils % (auto) 55.7 %; Platelet Count 223 K/uL (130-400); RDW Coefficient of Variation 12.4 % (11.5-14.5); RDW Standard Deviation 41.8 fL (36.4-46.3); Red Blood Count 4.94 M/uL (4.7-6.1); White Blood Count 7.23 K/uL (4.8-10.8)
[2021-02-02 06:35] LABS: Partial Thromboplastin Ratio 1.1; Partial Thromboplastin Time 28.3 Seconds (21.0-31.0)
[2021-02-02 06:47] LABS: Estimated Average Glucose 134 mg/dl; Hemoglobin A1C 6.3 % (4.5-5.6)
[2021-02-02 07:00] LABS: BUN Creatinine Ratio 18.1 (10-20); Calcium 8.8 mg/dl (8.5-10.1); Creatinine Clr Calc Pharmacy 102.7 ml/min; Est GFR (African American) 107.2; Est GFR (Non-African American) 92.5; Potassium 3.8 mmol/L (3.5-5.1)
[2021-02-02] MEDS: TICAGRELOR 90 MG TAB PO SCH ×2 (08:55→19:53)
[2021-02-02] MEDS: ATORVASTATIN 40 MG TAB PO SCH (08:56)
[2021-02-02] MEDS: ASPIRIN 81 MG ECTAB PO SCH (08:56)
[2021-02-02] MEDS: METOPROLOL TARTRATE 25 MG TAB PO SCH ×2 (08:56→19:52)
[2021-02-02] MEDS ORDERED: ATORVASTATIN 20 MG TAB PO SCH (09:00)
[2021-02-02] MEDS ORDERED: ASPIRIN 81 MG ECTAB PO SCH (09:00)
--- NOTE | 2021-02-02 14:07 | Electrocardiogram Report ---
Test Reason : Blood Pressure : / mmHG Vent. Rate : 066 BPM Atrial Rate : 066 BPM P-R Int : 218 ms QRS Dur : 086 ms QT Int : 396 ms P-R-T Axes : 054 -14 086 degrees QTc Int : 415 ms Sinus rhythm with 1st degree A-V block ST elevation consider inferior injury or acute infarct ACUTE VA / STEMI Abnormal ECG When compared with ECG of 01-FEB-2021 09:05, ST elevation now present in Inferior leads ST now depressed in Lateral leads Confirmed by Romario Miguel ([id number]) on 02/02/2021 2:06:55 PM Referred By: REFERRED SELF Confirmed By:Romario Miguel
--- NOTE | 2021-02-02 14:13 | Electrocardiogram Report ---
Test Reason : Blood Pressure : / mmHG Vent. Rate : 066 BPM Atrial Rate : 066 BPM P-R Int : 194 ms QRS Dur : 084 ms QT Int : 406 ms P-R-T Axes : 062 -15 018 degrees QTc Int : 425 ms Normal sinus rhythm Abnormal ECG When compared with ECG of 01-FEB-2021 22:21, (unconfirmed) ST no longer elevated in Inferior leads ST no longer depressed in Lateral leads T wave inversion now evident in Inferior leads Confirmed by Romario Miguel ([id number]) on 02/02/2021 2:13:42 PM Referred By: REFERRED SELF Confirmed By:Romario Miguel
--- NOTE | 2021-02-02 14:46 | Cardiology Progress Note ---
Date of Service February 02, 2021 Assessment & Plan (1) NSTEMI (non-ST elevated myocardial infarction): Patient is a 60-year-old male history of borderline hypertension, mild dyslipidemia, chronic tobacco use who presents with concerning constellation of pain described as left shoulder and scapular discomfort radiating to his arm intermittently. No acute injury pattern by EKG although troponin on initial assessment elevated consistent with non-ST segment elevation myocardial infarction until proven otherwise This patient was admitted to [facility] on 02/01/2021 with stuttering chest pain, Non-ST segment elevation myocardial infarction with troponin elevation but without EKG or echocardiographic changes. He was anticoagulated and scheduled for cath but had recurrent symptoms last evening with transient ST elevation on EKG. He underwent emergent cardiac catheterization demonstrating three-vessel disease including ostial right coronary artery ulceration. At the time of the procedure he was asymptomatic and ST segment elvation had resolved. Immediately post pro cedure he once again developed severe chest pain and ST elevation. Cardiac catheterization was repeated with right coronary artery occluded and underwent rescue stenting receiving a drug-eluting stent. He is without complaint this morning, on dual antiplatelet therapy metoprolol and statin Will initiate ELIZABETH inhibitor Ultimately warrants surgical revascularization We are working to schedule him for outpatient evaluation (2) Tobacco use disorder: Tobacco cessation mandated Admission and Anticipated Discharge Date Admission Date: February 01, 2021 Subjective Patient was seen and examined, chart, medications, telemetry reviewed. Events of past evening noted Patient currently without chest pain or discomfort. Access sites right wrist and right groin are healing well. No orthopnea or peripheral edema. No arrhythmias other than 1 5 beat run of complex ventricular ectopy earlier this morning. No dizziness or lightheadedness. Tolerating current medications Physical Exam Constitutional: WD/WN, vitals as above Eyes: PERRL, conjunctivae normal, anicteric sclerae ENMT: external ear and nose normal, oropharynx normal Neck: trachea midline, no thyromegaly Respiratory: normal respiratory effort, lungs clear to auscultation Cardiovascular: Rate/Rhythm: regular rate and regular rhythm Heart Sounds: normal S1 and normal S2; no gallop and no murmur Palpation: normal PMI Vessels: normal carotid upstroke and radial pulses present; no JVD and no carotid bruit Extremities: no edema Gastrointestinal (Abdomen): normal bowel sounds, soft, nontender, no hepatosplenomegaly Musculoskeletal: no cyanosis or clubbing, extremities motor strength 5/5 Skin: no rashes, warm and dry Neurologic: PERRL, EOMI, accommodation nl, no face palsy, no dysarthria Psychiatric: A+Ox3, euthymic affect Results & Data ([facility]) Vital Signs (Past 12 Hours) Vital Signs Temp Pulse Pulse Resp BP Pulse Ox 02/02/21 11:34 36.5 C 56 L 19 132/83 96 02/02/21 07:49 36.8 C 73 19 139/87 96 02/02/21 07:41 71 02/02/21 05:59 36.5 C 60 16 138/80 97 02/02/21 05:15 36.9 C 63 18 154/87 H 95 02/02/21 04:25 36.7 C 60 18 132/80 94 02/02/21 03:18 36.8 C 65 18 148/85 H 94 02/02/21 02:48 36.8 C 68 18 149/89 H 93 Laboratory Results Laboratory Results - last 24 hr 02/01/21 02/01/21 02/01/21 15:26 15:26 17:01 WBC RBC Hgb Hct MCV MCH MCHC RDW Std Deviation RDW Coeff of Archana Plt Count MPV Immature Gran % (Auto) Neut % (Auto) Lymph % (Auto) [place] % (Auto) Eos % (Auto) Baso % (Auto) Neut # (Auto) Lymph # (Auto) [place] # (Auto) Eos # (Auto) Baso # (Auto) Immature Gran # (Auto) APTT 63.0 H* PTT Ratio 2.4 Activ Coag Time Kaolin Sodium Potassium Chloride Carbon Dioxide Anion Gap BUN Creatinine Est Cr Clr Drug Dosing Est GFR ( Amer) Est GFR (Non-Af Amer) BUN/Creatinine Ratio Glucose Estimat Average Glucose Hemoglobin A1c Calcium Troponin I 1.240 H* Triglycerides Cholesterol LDL Cholesterol, Calc VLDL Cholesterol, Calc HDL Cholesterol Cholesterol/HDL Ratio TSH 1.050 Hepatitis C Ab Screen 02/01/21 02/02/21 02/02/21 21:01 00:26 00:39 WBC RBC Hgb Hct MCV MCH MCHC RDW Std Deviation RDW Coeff of Archana Plt Count MPV Immature Gran % (Auto) Neut % (Auto) Lymph % (Auto) [place] % (Auto) Eos % (Auto) Baso % (Auto) Neut # (Auto) Lymph # (Auto) [place] # (Auto) Eos # (Auto) Baso # (Auto) Immature Gran # (Auto) APTT PTT Ratio Activ Coag Time Kaolin 142 H 345 H Sodium Potassium Chloride Carbon Dioxide Anion Gap BUN Creatinine Est Cr Clr Drug Dosing Est GFR ( Amer) Est GFR (Non-Af Amer) BUN/Creatinine Ratio Glucose Estimat Average Glucose Hemoglobin A1c Calcium Troponin I 1.360 H* Triglycerides Cholesterol LDL Cholesterol, Calc VLDL Cholesterol, Calc HDL Cholesterol Cholesterol/HDL Ratio TSH Hepatitis C Ab Screen 02/02/21 02/02/21 02/02/21 01:06 05:36 05:36 WBC 7.23 RBC 4.94 Hgb 15.6 Hct 45.3 MCV 91.7 MCH 31.6 MCHC 34.4 RDW Std Deviation 41.8 RDW Coeff of Archana 12.4 Plt Count 223 MPV 9.4 Immature Gran % (Auto) 0.7 Neut % (Auto) 55.7 Lymph % (Auto) 30.7 [place] % (Auto) 10.4 Eos % (Auto) 2.2 Baso % (Auto) 0.3 Neut # (Auto) 4.03 Lymph # (Auto) 2.22 [place] # (Auto) 0.75 H Eos # (Auto) 0.16 Baso # (Auto) 0.02 Immature Gran # (Auto) 0.05 H APTT PTT Ratio Activ Coag Time Kaolin 213 H Sodium 140 Potassium 3.8 Chloride 109 H Carbon Dioxide 27 Anion Gap 4.0 BUN 16 Creatinine 0.90 Est Cr Clr Drug Dosing 102.7 Est GFR ( Amer) 107.2 Est GFR (Non-Af Amer) 92.5 BUN/Creatinine Ratio 18.1 Glucose 104 H Estimat Average Glucose Hemoglobin A1c Calcium 8.8 Troponin I Triglycerides 193 H Cholesterol 173 LDL Cholesterol, Calc 94 VLDL Cholesterol, Calc 39 HDL Cholesterol 40 Cholesterol/HDL Ratio 4 TSH Hepatitis C Ab Screen 02/02/21 02/02/21 02/02/21 05:36 05:36 05:36 WBC RBC Hgb Hct MCV MCH MCHC RDW Std Deviation RDW Coeff of Archana Plt Count MPV Immature Gran % (Auto) Neut % (Auto) Lymph % (Auto) [place] % (Auto) Eos % (Auto) Baso % (Auto) Neut # (Auto) Lymph # (Auto) [place] # (Auto) Eos # (Auto) Baso # (Auto) Immature Gran # (Auto) APTT 28.3 PTT Ratio 1.1 Activ Coag Time Kaolin Sodium Potassium Chloride Carbon Dioxide Anion Gap BUN Creatinine Est Cr Clr Drug Dosing Est GFR ( Amer) Est GFR (Non-Af Amer) BUN/Creatinine Ratio Glucose Estimat Average Glucose 134 Hemoglobin A1c 6.3 H Calcium Troponin I Triglycerides Cholesterol LDL Cholesterol, Calc VLDL Cholesterol, Calc HDL Cholesterol Cholesterol/HDL Ratio TSH Hepatitis C Ab Screen Neg Medications Administered Current Medications Aspirin (Aspirin 81 Mg Ectab) 81 mg PO QAM [facility] Stop: 03/04/21 08:59 Last Admin: 02/02/21 08:56 Dose: 81 mg Documented by: Atorvastatin Calcium (Atorvastatin 40 Mg Tab) 40 mg PO QAM [facility] Stop: 03/04/21 08:59 Last Admin: 02/02/21 08:56 Dose: 40 mg Documented by: Sodium Chloride (Nss 1000ml) 1,000 mls @ 50 mls/hr IV .Q20H [facility] Stop: 03/03/21 14:44 Last Infusion: 02/02/21 01:30 Dose: 50 mls/hr Documented by: Metoprolol Tartrate (Metoprolol Tartrate 25 Mg Tab) 12.5 mg PO BID [facility] Stop: 03/03/21 20:59 Last Admin: 02/02/21 08:56 Dose: 12.5 mg Documented by: Morphine Sulfate (Morphine Sulfate 4 Mg/Ml 1 Ml Carp\Vial) 4 mg IV Q4H PRN PRN Reason: Pain Stop: 02/15/21 22:28 Nitroglycerin (Nitroglycerin Sl 0.4 Mg/Tab Tab) 0.4 mg SL UD PRN PRN Reason: cp Stop: 03/03/21 22:28 Last Admin: 02/02/21 00:06 Dose: 0.4 mg Documented by: Ticagrelor (Ticagrelor 90 Mg Tab) 90 mg PO BID [facility] Stop: 03/04/21 08:59 Last Admin: 02/02/21 08:55 Dose: 90 mg Documented by: Tramadol HCl (Tramadol Hcl 50 Mg Tablet) 25 - 50 mg PO Q4H PRN PRN Reason: Pain Stop: 03/03/21 22:28
[2021-02-02] MEDS: lisinopril 2.5 MG TAB PO SCH (15:58)
--- NOTE | 2021-02-02 16:09 | Hospitalist Progress Note ---
Date of Service February 02, 2021 Assessment & Plan (1) NSTEMI (non-ST elevated myocardial infarction): Patient is a 60 yr male with H/O Tobacco use who presents with intermittent shoulder and left arm pain over the past few days and found to have NSTEMI. STEMI S/P RCA CRISTAL Cardiac cath shows three-vessel disease, ostial right RCA ulceration Needs CABG electively Continue aspirin, Brilinta, metoprolol, lisinopril, statin Appreciate cardiology input Needs CT surgery eval eventually Prediabetes HbA1c 6.3 [employer] on dietary changes (2) Tobacco use disorder: Cessation recommended DVT Px: SCDs for now Code status: FULL Admission and Anticipated Discharge Date Admission Date: February 01, 2021 Subjective Patient is seen and examined at bedside Patient had urgent cardiac catheterization overnight Denies any chest pain, dyspnea, dizziness, nausea, abdominal pain this morning Offers no complaints currently Review of Systems Review of Systems: All systems reviewed & are unremarkable except as noted in HPI & below Physical Exam Physical Exam: Physical Exam: Vitals signs as noted above General Appearance:Moderately built and nourished, no apparent distress Head: normocephalic, Atraumatic Eyes: normal inspection, EOMI Neck: supple, Trachea midline Respiratory/Chest: Normal breath sounds, CTA Cardiovascular: S1, S2, No murmur Abdomen/GI:Soft, Non tender, Bowel sounds present Extremities/Musculoskelatal:normal inspection, no edema Neurologic/Psych:AAOX3, grossly no focal neurological deficits Skin: normal color, warm Results & Data Results & Data ([facility]) Vital Signs (Past 12 Hours) Vital Signs Temp Pulse Pulse Resp BP Pulse Ox 02/02/21 15:42 36.8 C 70 19 135/88 94 02/02/21 11:34 36.5 C 56 L 19 132/83 96 02/02/21 07:49 36.8 C 73 19 139/87 96 02/02/21 07:41 71 02/02/21 05:59 36.5 C 60 16 138/80 97 02/02/21 05:15 36.9 C 63 18 154/87 H 95 02/02/21 04:25 36.7 C 60 18 132/80 94 Laboratory Results Short CBC 02/02/21 Range/Units 05:36 WBC 7.23 (4.8-10.8) K/uL Hgb 15.6 (14.0-18.0) g/dL Hct 45.3 (42-52) % Plt Count 223 (130-400) K/uL BMP 02/02/21 05:36 Sodium 140 Potassium 3.8 Chloride 109 H Carbon Dioxide 27 BUN 16 Creatinine 0.90 Glucose 104 H Calcium 8.8 Cardiac Enzymes 02/01/21 02/01/21 Range/Units 15:26 21:01 Troponin I 1.240 H* 1.360 H* (0-0.045) ng/ml
[2021-02-02] MEDS: SODIUM CHLORIDE 0.9% 1000ML 1,000 ML IV SCH ×2 (16:10→22:39)
[2021-02-03 07:19] LABS: Hematocrit (blood only) 44.8 % (42-52); Hemoglobin 15.3 g/dL (14.0-18.0); Mean Corpuscular Hemoglobin 31.2 pg (25-34); Mean Corpuscular Hgb Conc 34.2 g/dL (32-36); Mean Corpuscular Volume 91.4 fL (80-100); Mean Platelet Volume 9.4 fL (7.4-10.4); Platelet Count 226 K/uL (130-400); RDW Coefficient of Variation 12.5 % (11.5-14.5); White Blood Count 7.91 K/uL (4.8-10.8)
[2021-02-03 07:47] LABS: BUN Creatinine Ratio 20.2 (10-20); Calcium 8.9 mg/dl (8.5-10.1); Creatinine Clr Calc Pharmacy 91.5 ml/min; Est GFR (African American) 96.7; Est GFR (Non-African American) 83.5; Magnesium 2.1 mg/dl (1.8-2.4); Potassium 4.1 mmol/L (3.5-5.1)
[2021-02-03] MEDS: TICAGRELOR 90 MG TAB PO SCH (08:08)
[2021-02-03] MEDS: lisinopril 2.5 MG TAB PO SCH (08:08)
[2021-02-03] MEDS: ASPIRIN 81 MG ECTAB PO SCH (08:08)
[2021-02-03] MEDS: METOPROLOL TARTRATE 25 MG TAB PO SCH (08:08)
[2021-02-03] MEDS: ATORVASTATIN 40 MG TAB PO SCH (08:09)
--- NOTE | 2021-02-03 10:12 | Cardiology Progress Note ---
Date of Service February 03, 2021 Assessment & Plan (1) NSTEMI (non-ST elevated myocardial infarction): Patient is a 60-year-old male history of borderline hypertension, mild dyslipidemia, chronic tobacco use who presents with concerning constellation of pain described as left shoulder and scapular discomfort radiating to his arm intermittently. No acute injury pattern by EKG although troponin on initial assessment elevated consistent with non-ST segment elevation myocardial infarction until proven otherwise This patient was admitted to [facility] on 02/01/2021 with stuttering chest pain, Non-ST segment elevation myocardial infarction with troponin elevation but without EKG or echocardiographic changes. He was anticoagulated and scheduled for cath but had recurrent symptoms last evening with transient ST elevation on EKG. He underwent emergent cardiac catheterization demonstrating three-vessel disease including ostial right coronary artery ulceration. At the time of the procedure he was asymptomatic and ST segment elvation had resolved. Immediately post pro cedure he once again developed severe chest pain and ST elevation. Cardiac catheterization was repeated with right coronary artery occluded and underwent rescue stenting receiving a drug-eluting stent. Patient now comfortable past 24 hours without complaint or difficulty. Discussed findings and plan in detail. Anticipate discharge today Currently being scheduled for outpatient appointment with cardiovascular surgery in the next week's time. Ultimate goal would be surgery in approximately 1 month to allow discontinuation of Brilinta preoperatively We will continue optimal medical regimen, beta-marian with metoprolol 25 mg p.o. twice daily, statin, low-dose ELIZABETH inhibitor, dual antiplatelet therapy. Nitroglycerin sublingually as needed No strenuous activity Patient to report any new symptoms or complaints Follow-up cardiology 2 weeks time, primary care as scheduled 02/07/2021 (2) Tobacco use disorder: Tobacco cessation mandated Admission and Anticipated Discharge Date Admission Date: February 01, 2021 Subjective Patient seen and examined, chart, medications, telemetry reviewed. Overall feels well this morning no chest pain or discomfort no dizziness or lightheadedness. Ambulatory without difficulty. Telemetry with one 5 beat run of complex ectopy otherwise no arrhythmias. Physical Exam Constitutional: WD/WN, vitals as above Eyes: PERRL, conjunctivae normal, anicteric sclerae ENMT: external ear and nose normal, oropharynx normal Neck: trachea midline, no thyromegaly Respiratory: normal respiratory effort, lungs clear to auscultation Cardiovascular: Rate/Rhythm: regular rate and regular rhythm Heart Sounds: normal S1 and normal S2; no gallop and no murmur Palpation: normal PMI V essels: normal carotid upstroke and radial pulses present; no JVD and no carotid bruit Extremities: no edema Gastrointestinal (Abdomen): normal bowel sounds, soft, nontender, no hepatosplenomegaly Musculoskeletal: no cyanosis or clubbing, extremities motor strength 5/5 Skin: no rashes, warm and dry Neurologic: PERRL, EOMI, accommodation nl, no face palsy, no dysarthria Psychiatric: A+Ox3, euthymic affect Results & Data ([facility]) Vital Signs (Past 12 Hours) Vital Signs Temp Pulse Resp BP BP Pulse Ox 02/03/21 08:00 37.0 C 78 21 118/76 95 02/03/21 03:57 36.6 C 72 18 120/78 94 02/02/21 23:07 36.4 C L 65 18 114/65 96 Laboratory Results Laboratory Results - last 24 hr 02/03/21 02/03/21 06:40 06:40 WBC 7.91 RBC 4.90 Hgb 15.3 Hct 44.8 MCV 91.4 MCH 31.2 MCHC 34.2 RDW Std Deviation 42.0 RDW Coeff of Archana 12.5 Plt Count 226 MPV 9.4 Sodium 141 Potassium 4.1 Chloride 110 H Carbon Dioxide 27 Anion Gap 4.0 BUN 20 H Creatinine 0.98 Est Cr Clr Drug Dosing 91.5 Est GFR ( Amer) 96.7 Est GFR (Non-Af Amer) 83.5 BUN/Creatinine Ratio 20.2 H Glucose 105 H Calcium 8.9 Magnesium 2.1 Medications Administered Current Medications Aspirin (Aspirin 81 Mg Ectab) 81 mg PO [facility] Stop: 03/04/21 08:59 Last Admin: 02/03/21 08:08 Dose: 81 mg Documented by: Atorvastatin Calcium (Atorvastatin 40 Mg Tab) 40 mg PO [facility] Stop: 03/04/21 08:59 Last Admin: 02/03/21 08:09 Dose: 40 mg Documented by: Sodium Chloride (Nss 1000ml) 1,000 mls @ 50 mls/hr IV .Q20H [facility] Stop: 03/03/21 14:44 Last Admin: 02/02/21 22:39 Dose: 50 mls/hr Documented by: Lisinopril (Lisinopril 2.5 Mg Tab) 2.5 mg PO QAM [facility] Stop: 03/04/21 15:14 Last Admin: 02/03/21 08:08 Dose: 2.5 mg Documented by: Metoprolol Tartrate (Metoprolol Tartrate 25 Mg Tab) 12.5 mg PO BID [facility] Stop: 03/03/21 20:59 Last Admin: 02/03/21 08:08 Dose: 12.5 mg Documented by: Morphine Sulfate (Morphine Sulfate 4 Mg/Ml 1 Ml Carp\Vial) 4 mg IV Q4H PRN PRN Reason: Pain Stop: 02/15/21 22:28 Nitroglycerin (Nitroglycerin Sl 0.4 Mg/Tab Tab) 0.4 mg SL UD PRN PRN Reason: cp Stop: 03/03/21 22:28 Last Admin: 02/02/21 00:06 Dose: 0.4 mg Documented by: Ticagrelor (Ticagrelor 90 Mg Tab) 90 mg PO BID [facility] Stop: 03/04/21 08:59 Last Admin: 02/03/21 08:08 Dose: 90 mg Documented by: Tramadol HCl (Tramadol Hcl 50 Mg Tablet) 25 - 50 mg PO Q4H PRN PRN Reason: Pain Stop: 03/03/21 22:28
--- NOTE | 2021-02-03 10:49 | Hospitalist Progress Note ---
Date of Service February 03, 2021 Assessment & Plan (1) NSTEMI (non-ST elevated myocardial infarction): Patient is a 60 yr male with H/O Tobacco use who presents with intermittent shoulder and left arm pain over the past few days and found to have NSTEMI. 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 (2) Tobacco use disorder: Cessation recommended DVT Px: SCDs Code status: FULL Admission and Anticipated Discharge Date Admission Date: February 01, 2021 Subjective Patient is seen and examined at bedside States feeling well today No recurrence of symptoms Denies any chest pain, dyspnea, dizziness, nausea, abdominal pain Eager to get discharged Review of Systems Review of Systems: All systems reviewed & are unremarkable except as noted in HPI & below Physical Exam Physical Exam: Physical Exam: Vitals signs as noted above General Appearance:Moderately built and nourished, no apparent distress Head: normocephalic, Atraumatic Eyes: normal inspection, EOMI Neck: supple, Trachea midline Respiratory/Chest: Normal breath sounds, CTA Cardiovascular: S1, S2, No murmur Abdomen/GI:Soft, Non tender, Bowel sounds present Extremities/Musculoskelatal:normal inspection, no edema Neurologic/Psych:AAOX3, grossly no focal neurological deficits Skin: normal color, warm Results & Data Results & Data ([facility]) Vital Signs (Past 12 Hours) Vital Signs Temp Pulse Resp BP BP Pulse Ox 02/03/21 08:00 37.0 C 78 21 118/76 95 02/03/21 03:57 36.6 C 72 18 120/78 94 02/02/21 23:07 36.4 C L 65 18 114/65 96 Laboratory Results Short CBC 02/03/21 Range/Units 06:40 WBC 7.91 (4.8-10.8) K/uL Hgb 15.3 (14.0-18.0) g/dL Hct 44.8 (42-52) % Plt Count 226 (130-400) K/uL BMP 02/03/21 06:40 Sodium 141 Potassium 4.1 Chloride 110 H Carbon Dioxide 27 BUN 20 H Creatinine 0.98 Glucose 105 H Calcium 8.9
--- NOTE | 2021-02-03 11:26 | Discharge Summary ---
Date of Service February 03, 2021 Admission HPI Per Admitting Provider This is a 60yo M with a PMH of tobacco use who presents with intermittent shoulder and left arm pain over the past few days. Has history of pain similar to this that he describes as an ache underneath the back of his left shoulder with radiating pain down left arm into fingertips with associated feelings of weakness. Occurred first in June 2019 when he was on a fishing trip in [place]. Underwent echocardiogram at that time which was normal. Was encouraged to stop smoking cigars by PCP. Was successful with cessation for a bit but is smoking again and pain resolved, but is now back to 6 small cigars daily. Over the past 3 days, endorses intermittent episodes of shoulder discomfort that occur after patient smokes a cigar. Pain improves with Tylenol, Advil and rest. Episodes usually last no longer than an hour. Denies any associated diaphoresis, chest pain, shortness of breath, nausea or vomiting. No known family history or personal history of heart disease. Has been working out recently without el iciting shoulder pain. Denies any personal history of diabetes, hypertension. Told he had borderline hyperlipidemia in the past but has been trying to control with diet and exercise. Denies any fever, chills, lightheadedness, headache, dysuria, diarrhea or constipation. In ED, patient no longer experiencing pain in shoulder. Is resting comfortably. Vital signs stable. D-dimer within normal limits. Initial troponin elevated 0.974. Chest x-ray without any active disease in chest. EKG without acute ECG changes. ED provider discussed with Dr. Issa in dairy lab technician, who recommended initiating IV heparin for NSTEMI and getting echo. Admission Exam Per Admitting Provider Physical Exam Physical Exam: General Appearance: WD/WN, vitals as above, NAD, sitting up in bed, pleasant, conversing easily Head: normocephalic, atraumatic Eyes: normal inspection, PERRL, conjunctivae normal, anicteric sclerae ENT: external ear and nose normal, oropharynx normal Neck: normal visual inspection, trachea midline, no thyromegaly Respiratory: normal respiratory effort, lungs clear to auscultation, no wheeze, rales, rhonchi. No accessory muscle use Cardiovascular: regular rate, rhythm, no murmur, normal peripheral pulses, no BLE edema. Vessels: no JVD Chest: normal inspection of chest Abdomen/GI: normal bowel sounds, soft, nontender, no hepatosplenomegaly Extremities/Musculoskeletal: no cyanosis or clubbing, extremities motor strength 5/5. No shoulder or L arm pain to palpation Neurologic: PERRL, EOMI, accommodation nl, no face palsy, no dysarthria, CN's II-XI intact bilaterally and moves all extremities Psychiatric: A+Ox3, euthymic affect Skin: no rashes, normal color, warm/dry Principal Diagnosis ST elevated Myocardial Infarction Prediabetes Discharge Data Allergies Allergy/AdvReac Type Severity Reaction Status Date / Time Penicillins Allergy Intermediate UNSURE Verified 02/01/21 09:10 Consultations 02/01/21 10:46 ED Decision to Admit Stat 02/01/21 12:44 Consult Cardiology Routine Procedures Performed Operation Date: 02/01/21 23:30 Actual Procedures s Cineradiography w/Routine Exam - Ehsan Issa MD p Aspiration/PCI w/CRISTAL for Stemi - Ehsan Issa MD s Cath, Coronaries ONLY (no LV) - Ehsan Issa MD s Ultrasound Vascular Access - Ehsan Issa MD Operation Date: 02/02/21 08:30 <No data on this case meets the specified criteria> Ordered Studies 02/01/21 23:15 CL Cath Imgs for PACS use only Routine CXR: No active disease in the chest. Cardiac catheterization Summary of Findings LMT: large. mild disease with distal 30% LAD: large, transapical. p-diffuse mild, m-long eccentric calcified up to 95%, d-mild scattered disease D1 and D2 small to medium and arise in close proximity to one another. D3 is large and without significant disease. LCx large, nondominant. p-diffuse mild, m-diffuse mild, d-long eccentric 95% in AV groove. then terminates in medium to large PLB. OM1- large and branching. ostial to mid vessel diffuse disease of up to 50-70%. OM2 small RCA: large and dominant.p-diffuse disease with up to 95% calcified stenosis. m+d diffuse mild disease. PDA- large and branches distally. scattered mild disease. PLB large and multibranching. 99% stenosis ostial to proximal first branch. Long eccentric 70% stenosis second branch Hospital Course (1) NSTEMI (non-ST elevated myocardial infarction): Patient is a 60 yr male with H/O Tobacco use who presents with intermittent shoulder and left arm pain over the past few days and found to have NSTEMI. 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 HbA1c 6.3 [place] on dietary changes (2) Tobacco use disorder: Cessation recommended DVT Px: SCDs Code status: FULL Total Time Total Time Spent Total Time Spent (In Minutes): 45 minutes Total Time Includes: Examination of the Patient, Discharge Planning, Medication Reconciliation, Communication With Other Providers and Other Discharge Plan Discharge Items Patient Disposition: Home - Self-Care Reason For Visit: SHOULDER PAIN, NSTEMI Discharge Diagnosis: ST elevated Myocardial Infarction Prediabetes Activity: Per Instructions section Activity Comment: No strenuous activity until further recommendations by your feed research technician Exercise/Sports: Wait until after follow-up appointment Non-emergency contact: Primary Care Provider and Installment Account Checker Call non-emergency contact if: you have any medication questions, your symptoms worsen, your pain is not controlled, your pain is worsening, your pain is concerning for you and you have a fever Follow-up/Referrals: Philip Livingston MD [Primary Care Provider] - (Date & Time 02/07/2021 12:00 PM Provider Philip Livingston MD Department General Internal Medicine [facility] ) Ruben Diallo MD [Physician] - 02/14/21 3:00 pm (Please follow up with Jaime Hanson PA-C (Dr. Diallo) on Friday02/14/21 at 3:00 pm. Please arrive to the office at 2:45 pm for your appointment. If you are unable to keep this appointment, please call the office to reschedule at [phone].) Diet: Heart Healthy Addtl Attending Provider Instructions: Follow-up with your primary care physician Dr. Livingston on 02/07/2021 12:00 PM as scheduled Follow-up with your feed research technician Dr. Diallo in 2 weeks as recommended Take your medications regularly as prescribed Quit smoking tobacco as advised Minimize use of NSAIDs like Ibuprofen while on Aspirin, Brilinta as they can increase your risk of bleeding. Seek immediate medical attention if your symptoms reoccur or worsen Home Care: * Take your medications exactly as directed. Don't skip doses. * Remember that recovery after a heart attack takes time. Plan to rest for at lease 4-8 weeks while you recover. Then return to normal activity when your doctor says it's okay. * Ask your doctor about joining a heart rehabilitation program. * Tell your doctor if you are feeling depressed. Feelings of sadness are common after a heart attack, but it is important that you speak to someone if you are feeling overwhelmed by these feelings. * If you are having chest pain, call 911 for an ambulance. Do NOT drive yourself to the hospital. * Ask your family members to learn CPR. * Learn to take your own blood pressure and pulse. Keep a record of your results. Ask your doctor when you should seek emergency medical attention. He or she will tell you which blood pressure reading is dangerous. Lifestyle Changes: * Maintain a healthy weight. Get help to lose any extra pounds. * Cut back on salt. * Limit canned, dried, packaged, and fast foods. * Don't add salt to your food. * Season foods with herbs instead of salt when you cook. * Break the smoking habit. Enroll in a stop-smoking program to improve your chances of success. * Limit fatty foods. * Ask your doctor about having your lipid levels checked regularly. * Build up your activity according to your doctor's recommendation. * Ask your doctor when it's okay to resume sexual activity. * Tell your doctor about any erectile dysfunction (ED) medication you are taking. Some ED medications are not safe if you take certain heart medications. * Try to manage stress. Follow Up: It is important for you to keep your follow up appointments with your medical provider. Pending Studies at Discharge: No Stand-Alone Forms: My [facility], Smoking Cessation Medications and DC Order Prescriptions: New Brilinta 90 mg Tablet 90 mg PO BID Qty: 60 RF: 1 atorvastatin 40 mg Tablet 40 mg PO QAM Qty: 30 RF: 1 lisinopril 2.5 mg Tablet 2.5 mg PO QAM Qty: 30 RF: 1 metoprolol tartrate 25 mg Tablet 25 mg PO BID Qty: 60 RF: 1 aspirin 81 mg Tablet,Delayed Release (Dr/Ec) 81 mg PO QAM Qty: 30 RF: 1 nitroglycerin [Nitrostat] 0.4 mg Tablet, Sublingual 0.4 mg sublingual UD PRN (Reason: chest pain) Qty: 30 RF: 0 Continued acetaminophen [Tylenol] 325 mg Tablet 325 mg PO QID PRN (Reason: Pain) RF: 0 nicotine (polacrilex) [Nicorette] 2 mg Gum 2 mg BUCCAL Q4H PRN (Reason: Nicotine Cravings) RF: 0 Discontinued ibuprofen [Advil] 200 mg Tablet 600 mg PO Q6H PRN (Reason: Pain) RF: 0 Discharge Orders: Discharge Order (Routine); Ordered 02/03/21 Ordered By: Miguel Weeks/Other Patient Handouts: 5 Steps for Eating Healthier, A1C Admission Data Admit Date/Time: 02/01/21 11:08 Attending Provider: Miguel Turner Admit Provider: Miguel Turner Primary Care Provider: Philip Livingston Other Providers: Nadir Johns Satish K. Other Interventions: Discharge Summary Assessment (RN) Last Done: 02/03/21 11:51
[2021-02-03] MEDS ORDERED: METOPROLOL TARTRATE 25 MG TAB PO SCH (21:00)
== END 2021-02-03 12:20 | disposition home or self-care (01) | DRG 229 ==
LOC: ED 08:19 → 2S 11:08
PROC: CLB.CCO (2021-02-01 23:30)